=== PATIENT | male | born 1975 | race Asian ===

== ENCOUNTER → 2024-11-23 09:10 | Outpatient (REF) | payer BC, SELFPAY | LOC: RAD 09:10 | PROVIDERS: ATTENDING PHYSICIAN Physician Assistant Medical; FAMILY PHYSICIAN Family Medicine | DX: Z00.00 Encounter for general adult medical examination without abnormal findings (principal); Z87.891 Personal history of nicotine dependence | CPT/HCPCS: 71046 ==